=== PATIENT | female | born 1950 | race Caucasian/White ===

== ENCOUNTER 2018-08-25 08:32 | Outpatient (CLI) | payer MEDICARE, OTHER | END 2018-08-25 08:33 | disposition home or self-care (01) | LOC: BICMAMMO 08:32 | PROVIDERS: ATTEND Nurse Practitioner Family | DX: Z12.31 Encounter for screening mammogram for malignant neoplasm of breast (principal) | CPT/HCPCS: 77063; 77067 ==

== ENCOUNTER 2019-06-13 14:42 | Outpatient (CLI) | payer MEDICARE, OTHER ==
--- NOTE | 2019-06-13 16:25 | CT ---
CT lumbar spine without contrast: HISTORY: Low back pain with occasional right leg pain. COMPARISON: No prior CT exams of the lumbar spine available FINDINGS: Vascular calcifications are seen in the abdominal aorta and involving the iliac arteries. Colonic div erticulosis is partially imaged. Calcified granuloma is seen in the medial aspect right hepatic lobe. There is left convex scoliosis of the thoracolumbar spine. No fracture or subluxation is seen. Multil evel degenerative changes are present including prominent anterior osteophytes at multiple levels greatest at the T12-L1, L1-2, and L2-3 levels. L1-2: There is a mild broad-based disc osteophyte complex. No significant central canal or neural for aminal narrowing is present. L2-3: There is loss of intervertebral disc height. Broad-based disc osteophyte complex is present wit h mild facet hypertrophic changes. There is mild bilateral neural foraminal narrowing as well as mild to moderate central canal narrowing. L3-4: There is a broad-based disc osteophyte complex. Facet hypertrophic changes and ligamentous thic kening are present. This results in moderate narrowing of the central spinal canal with [id number] bilateral neural foraminal narrowing. L4-5: There is loss of intervertebral disc height. Broad-based disc osteophyte complex is present. Fa cet hypertrophic changes and ligamentous thickening are noted. There is moderate to severe left-sided neural foraminal narrowing with mild right-sided neural foraminal narrowing. There is mild -to-moderate central canal narrowing at this level. L5-S1: There is a broad-based disc osteophyte complex. There is no significant narrowing of the centr al spinal canal. There is mild left-sided neural foraminal narrowing. The right neural foramen is patent. IMPRESSION: 1. Multilevel degenerative changes with greatest degree of neural foraminal narrowing at the L4-5 lev el on the left which appears moderate to severe. 2. Left convex scoliosis thoracolumbar spine.
== END 2019-06-13 14:43 | disposition home or self-care (01) ==
LOC: TBSIIMAG 14:42
PROVIDERS: ATTEND Neurological Surgery
DX: M54.5 Low back pain (principal); M47.816 Spondylosis without myelopathy or radiculopathy, lumbar region; M48.061 Spinal stenosis, lumbar region without neurogenic claudication; M41.9 Scoliosis, unspecified
CPT/HCPCS: 72131

== ENCOUNTER 2019-08-30 10:58 | Outpatient (CLI) | payer MEDICARE, OTHER ==
--- NOTE | 2019-08-30 13:08 | MMO ---
Bilateral MAMMO Bilat Screen [facility]. CLINICAL HISTORY: Patient is 68 years old and is seen for screening. The patient has no family history of breast cancer. The patient has no personal history of cancer. VIEWS: The views performed were: bilateral craniocaudal with tomosynthesis and bilateral mediolateral oblique with tomosynthesis. FILMS COMPARED: The present examination has been compared to a prior imaging study performed at [facility] on 08/25/2018. This study has been interpreted with the assistance of computer-aided detection. MAMMOGRAM FINDINGS: The breasts are almost entirely fat. There are no suspicious masses, suspicious calcifications, or new areas of architectural distortion. IMPRESSION: THERE IS NO MAMMOGRAPHIC EVIDENCE OF MALIGNANCY. A ROUTINE FOLLOW-UP MAMMOGRAM IN 1 YEAR IS RECOMMENDED. THE RESULTS OF THIS EXAM WERE SENT TO THE PATIENT. ACR BI-RADS Category 1 - Negative MAMMOGRAPHY NOTE: 1. A negative mammogram report should not delay a biopsy if a dominant of clinically suspicious mass is present. 2. Approximately 10% to 15% of breast cancers are not detected by mammography. 3. Adenosis and dense breasts may obscure an underlying neoplasm. Reported by: BERNARDA ROMERO MD Electonically Signed: [id number]
== END 2019-08-30 10:59 | disposition home or self-care (01) ==
LOC: BICMAMMO 10:58
PROVIDERS: ATTEND Nurse Practitioner Family
DX: Z12.31 Encounter for screening mammogram for malignant neoplasm of breast (principal)
CPT/HCPCS: 77063; 77067

== ENCOUNTER 2019-11-23 16:17 | Outpatient (CLI) | payer MEDICARE, OTHER ==
--- NOTE | 2019-11-23 16:45 | RAD ---
EXAM: Chest 2 views: HISTORY: Shortness of breath COMPARISON: None. FINDINGS: There is a normal-sized cardiomediastinal silhouette. There is no evidence of consolidation, mass, or pleural effusion. Degenerative changes and scoliotic curvature the spine are seen. IMPRESSION: No evidence of acute cardiopulmonary disease
== END 2019-11-23 16:18 | disposition home or self-care (01) ==
LOC: SCSRAD 16:17
PROVIDERS: ATTEND Nurse Practitioner Family
DX: R06.02 Shortness of breath (principal)
CPT/HCPCS: 71046

== ENCOUNTER 2020-09-05 11:18 | Outpatient (CLI) | payer MEDICARE, OTHER ==
--- NOTE | 2020-09-05 13:09 | MMO ---
Bilateral MAMMO Bilat Screen [facility]. CLINICAL HISTORY: Patient is 69 years old and is seen for screening. The patient has no family history of breast cancer. The patient has no personal history of cancer. VIEWS: The views performed were: bilateral craniocaudal with tomosynthesis and bilateral mediolateral oblique with tomosynthesis. FILMS COMPARED: The present examination has been compared to prior imaging studies performed at [facility] on 08/25/2018 and 08/30/2019. This study has been interpreted with the assistance of computer-aided detection. MAMMOGRAM FINDINGS: The breasts are almost entirely fat. There are no suspicious masses, suspicious calcifications, or new areas of architectural distortion. IMPRESSION: THERE IS NO MAMMOGRAPHIC EVIDENCE OF MALIGNANCY. A ROUTINE FOLLOW-UP MAMMOGRAM IN 1 YEAR IS RECOMMENDED. THE RESULTS OF THIS EXAM WERE SENT TO THE PATIENT. ACR BI-RADS Category 1 - Negative MAMMOGRAPHY NOTE: 1. A negative mammogram report should not delay a biopsy if a dominant of clinically suspicious mass is present. 2. Approximately 10% to 15% of breast cancers are not detected by mammography. 3. Adenosis and dense breasts may obscure an underlying neoplasm. Reported by: EDEN BRYANT MD Electonically Signed: [id number]
== END 2020-09-05 11:19 | disposition home or self-care (01) ==
LOC: BICMAMMO 11:18
PROVIDERS: ATTEND Family Medicine
DX: Z12.31 Encounter for screening mammogram for malignant neoplasm of breast (principal)
CPT/HCPCS: 77063; 77067

== ENCOUNTER 2021-09-08 10:52 | Outpatient (CLI) | payer MEDICARE | END 2021-09-08 10:53 | disposition home or self-care (01) | LOC: BICMAMMO 10:52 | PROVIDERS: ATTEND Family Medicine | DX: Z12.31 Encounter for screening mammogram for malignant neoplasm of breast (principal) | CPT/HCPCS: 77063; 77067 ==

== ENCOUNTER 2021-11-23 19:30 | Outpatient (CLI) | payer MEDICARE | END 2021-11-23 19:31 | disposition home or self-care (01) | LOC: SLEEPLAB 19:30 | PROVIDERS: ATTEND Family Medicine | DX: G47.33 Obstructive sleep apnea (adult) (pediatric) (principal); G47.9 Sleep disorder, unspecified; R53.83 Other fatigue; R51.9 Headache, unspecified; R06.83 Snoring; K21.9 Gastro-esophageal reflux disease without esophagitis; F32.9 Major depressive disorder, single episode, unspecified; R35.1 Nocturia; I10 Essential (primary) hypertension; G47.10 Hypersomnia, unspecified; G47.00 Insomnia, unspecified; E66.9 Obesity, unspecified; Z68.42 Body mass index [BMI] 45.0-49.9, adult | CPT/HCPCS: 95811 ==

== ENCOUNTER 2022-01-12 13:50 | Outpatient (CLI) | payer MEDICARE | END 2022-01-12 13:51 | disposition home or self-care (01) | LOC: BICMAMMO 13:50 | PROVIDERS: ATTEND Family Medicine | DX: Z13.820 Encounter for screening for osteoporosis (principal); Z78.0 Asymptomatic menopausal state | CPT/HCPCS: 77080 ==

== ENCOUNTER 2022-12-07 13:07 | Outpatient (CLI) | payer MEDICARE | END 2022-12-07 13:08 | disposition home or self-care (01) | LOC: BICMAMMO 13:07 | PROVIDERS: ATTEND Family Medicine | DX: Z12.31 Encounter for screening mammogram for malignant neoplasm of breast (principal) | CPT/HCPCS: 77063; 77067 ==

== ENCOUNTER 2023-01-18 11:31 | Observation (INO) | payer MEDICARE ==
[~2023-01-18 11:31] MED LIST: Iopamidol-370 76% 500 ML 1 ML ONE
[2023-01-18 12:27] LABS: #Eosinphils 0.1 thou/uL (0.0-0.7); #Lymphocytes 1.8 thou/uL (1.20-3.40); #Monocytes 1.4 thou/uL (0.11-0.59); #Neutrophils 11.5 thou/uL (1.40-6.50); %Basophils 0.1 % (0.0-1.0); %Eosinophils 0.4 % (0.0-10.0); %Lymphocytes 12.1 % (21.0-51.0); %Monocytes 9.3 % (0.0-10.0); Hemoglobin 12.4 g/dL (12.0-16.0); Mean Corpuscular HGB CONC 31.4 g/dL (32.0-36.0); Mean Corpuscular Volume 92.2 fl (78.0-98.0); Mean Platelet Volume 7.7 fL (7.4-10.4); Platelet Count 295 10x3/uL (130-400); RBC Distribution Width 13.6 % (11.5-14.5); Red Blood Cell (RBC) Count 4.28 mill/uL (4.20-5.40); White Blood Cell (WBC) Count 14.8 10x3/uL (4.8-10.8)
[2023-01-18] MEDS ORDERED: Ondansetron PF 4 MG/2 ML Vial ONE (12:37)
[2023-01-18] MEDS ORDERED: Morphine 4 MG/ML VIAL ONE (12:37)
[2023-01-18 12:49] LABS: ALT (SGPT) 16 U/L (8-55); AST (SGOT) 18 U/L (5-34); Albumin 3.9 g/dL (3.4-4.8); Alkaline Phosphatase 107 U/L (40-110); Anion Gap 16 mmol/L (10-20); BUN (Urea Nitrogen) 16 mg/dL (9.8-20.1); Bilirubin, Total 0.5 mg/dL (0.2-1.2); Calc. Creatinine Clearance 0 mL/min (70-130); Carbon Dioxide 22 mmol/L (23-31); Chloride 104 mmol/L (98-107); Estimated GFR 53; Globulin 4.1 g/dL (2.4-3.5); Glucose 105 mg/dL (83-110); Lipase 13 U/L (8-78); Potassium 4.1 mmol/L (3.5-5.1); Sodium 138 mmol/L (136-145)
[2023-01-18 14:05] LABS: Bacteria/HPF None Seen HPF (None Seen); Bilirubin Negative (Negative); Blood, Urine Trace (Negative); Clarity Clear (Clear); Glucose, Urine (Dipstick) Normal (Negative); Ketone, Urine Negative (Negative); Leukocyte Negative Leu/uL (Negative); Nitrite Negative (Negative); Protein, Urine (Dipstick) 20 mg/dL (Neg-Trace); RBC/HPF 0-3 HPF (0-3); Squamous Epithelial 0-3 HPF (0-3); Urobilinogen Normal mg/dL (Less than 2); WBC/HPF 0-3 HPF (0-3); pH, Urine 5.5 (5.0-9.0)
[2023-01-18] MEDS ORDERED: metroNIDAZOLE 500 MG/100 ML BAG ONE (14:55)
[2023-01-18] MEDS ORDERED: Acetaminophen 325 MG TAB PO PRN (14:57)
[2023-01-18] MEDS ORDERED: Ondansetron PF 4 MG/2 ML Vial IVP PRN (14:57)
[2023-01-18] MEDS ORDERED: HYDROcodone/Acetaminophen 10/325 mg Tablet PO PRN (14:57)
[2023-01-18] MEDS ORDERED: hydrALAZINE 20 MG/ML VIAL SLOW IVP PRN (15:00)
[2023-01-18] MEDS ORDERED: Morphine 2 MG/ML VIAL SLOW IVP PRN (15:00)
[2023-01-18 15:54] VITALS: BMI 47.9
[2023-01-18] MEDS ORDERED: Piperacillin/Tazobactam 3.375 GM in Sodium Chloride 0.9% 100 ML IVPB SCH ×2 (18:00→21:00)
[2023-01-19] MEDS: Piperacillin/Tazobactam 3.375 GM in Sodium Chloride 0.9% 100 ML IVPB SCH ×2 (02:31→08:54)
[2023-01-19 08:28] LABS: #Eosinphils 0.2 thou/uL (0.0-0.7); #Lymphocytes 1.7 thou/uL (1.20-3.40); #Monocytes 0.9 thou/uL (0.11-0.59); #Neutrophils 5.7 thou/uL (1.40-6.50); %Basophils 0.4 % (0.0-1.0); %Lymphocytes 19.5 % (21.0-51.0); %Neutrophils 67.1 % (42.0-75.0); Hemoglobin 10.8 g/dL (12.0-16.0); Mean Corpuscular HGB CONC 31.5 g/dL (32.0-36.0); Mean Corpuscular Volume 92.1 fl (78.0-98.0); Platelet Count 265 10x3/uL (130-400); RBC Distribution Width 13.4 % (11.5-14.5); Red Blood Cell (RBC) Count 3.71 mill/uL (4.20-5.40); White Blood Cell (WBC) Count 8.5 10x3/uL (4.8-10.8)
[2023-01-19] MEDS ORDERED: Sodium Chloride 0.9% 1,000 ML IV SCH (08:30)
[2023-01-19 08:35] LABS: Anion Gap 11 mmol/L (10-20); BUN (Urea Nitrogen) 16 mg/dL (9.8-20.1); Calc. Creatinine Clearance 97 mL/min (70-130); Calcium 8.7 mg/dL (7.8-10.44); Carbon Dioxide 24 mmol/L (23-31); Chloride 109 mmol/L (98-107); Estimated GFR 61; Glucose 93 mg/dL (83-110); Potassium 4.2 mmol/L (3.5-5.1); Sodium 140 mmol/L (136-145)
[2023-01-19] MEDS ORDERED: Lisinopril 5 MG TAB PO SCH (09:00)
[2023-01-19 12:00] VITALS: BP 128/78; TEMP 98
== END 2023-01-19 15:50 | disposition home or self-care (01) ==
LOC: ERS 11:31 → T4-A 15:36
PROVIDERS: ADMIT Internal Medicine; ATTEND Internal Medicine
DX: K57.32 Diverticulitis of large intestine without perforation or abscess without bleeding (principal); D72.829 Elevated white blood cell count, unspecified; I10 Essential (primary) hypertension; E66.9 Obesity, unspecified; Z68.42 Body mass index [BMI] 45.0-49.9, adult; Z79.899 Other long term (current) drug therapy; Z20.822 Contact with and (suspected) exposure to COVID-19
CPT/HCPCS: 74177; 80048; 80053; 83690; 85025 ×2; 96365; 96368; 96375 ×2; 96376; 99285; G0378 ×3; U0003; U0005; 36415; 81003; 81015; J1956; J2270; J2405; J2543; J3490; J7050; Q9967

== ENCOUNTER 2023-12-16 12:25 | Outpatient (CLI) | payer MEDICARE | END 2023-12-16 12:26 | disposition home or self-care (01) | LOC: BICMAMMO 12:25 | PROVIDERS: ATTEND Nurse Practitioner Family | DX: Z12.31 Encounter for screening mammogram for malignant neoplasm of breast (principal); Z80.3 Family history of malignant neoplasm of breast | CPT/HCPCS: 77063; 77067 ==